=== PATIENT | female | born 1975 | race Two or more races ===

== ENCOUNTER 2020-07-10 06:03 | Inpatient (IN) | payer OTHER ==
[~2020-07-10] VITALS: Ht 160 cm; Wt 68.0 kg
[2020-07-11] MEDS ORDERED: PERCOCET 5-3251 EACH PO (14:57)
== END 2020-07-11 16:02 | disposition home or self-care (01) | DRG 343 ==
LOC: ER 06:03 → SEC-K 12:42 → SURH 16:34
PROVIDERS: ADMIT Surgery; ATTEND Surgery
PROC: 0DTJ4ZZ Resection of Appendix, Percutaneous Endoscopic Approach (ICD-10-PCS; principal; 2020-07-10 14:00)
DX: K35.890 Other acute appendicitis without perforation or gangrene (principal); R10.31 Right lower quadrant pain; Z20.828 Contact with and (suspected) exposure to other viral communicable diseases